=== PATIENT | female | born 1970 ===

== ENCOUNTER 2023-09-10 21:36 | Outpatient (REF) | payer MEDICAID, SELFPAY ==
[2023-09-10 22:44] LABS: TSH (W/Ref FT4) 2.71 uIU/mL (0.36-3.74); Vitamin B12 382 pg/mL (193-986)
[2023-09-12 10:39] LABS: Lyme Ab w Rflx to Lyme Confirm Negative (Negative)
== END 2023-09-10 21:37 | disposition home or self-care (01) ==
LOC: LBN 21:36
PROVIDERS: Visit Provider Nurse Practitioner Family
DX: R20.2 Paresthesia of skin (principal); T14.8XXA Other injury of unspecified body region, initial encounter; W57.XXXA Bitten or stung by nonvenomous insect and other nonvenomous arthropods, initial encounter
CPT/HCPCS: 82607; 84443; 86618